=== PATIENT | female | born 1990 | race Caucasian/White ===

== ENCOUNTER 2020-07-18 20:52 | Emergency (ER) | payer MEDICAID ==
[~2020-07-18] VITALS: Ht 157.5 cm; Wt 52.6 kg
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
[2020-07-18] MEDS ORDERED: IBUPROFEN 600 MG TABLET PO ONE (22:00)
--- NOTE | 2020-07-18 22:01 | NUR ---
SOUMYA VAZQUEZ AT BEDSIDE.
[2020-07-18] MEDS ORDERED: IBUPROFEN 600 MG TABLET ONE (22:02)
[2020-07-18] MEDS ORDERED: LIDOCAINE 1%-EPI 1:100,000 20 ML VIAL ONE (22:10)
--- NOTE | 2020-07-18 23:43 | NUR ---
Patient discharged to home in stable condition. Written and verbal after care instructions given. Patient verbalizes understanding of instruction. ambulatory with a steady gait
[2020-07-18 23:56] VITALS: BP 125/82
== END 2020-07-18 22:56 | disposition home or self-care (01) ==
LOC: ER 20:52
DX: S92.344A Nondisplaced fracture of fourth metatarsal bone, right foot, initial encounter for closed fracture (principal); S51.011A Laceration without foreign body of right elbow, initial encounter; X58.XXXA Exposure to other specified factors, initial encounter; Y93.39 Activity, other involving climbing, rappelling and jumping off; Y92.89 Other specified places as the place of occurrence of the external cause; Y99.8 Other external cause status
CPT/HCPCS: 12002; 73080; 73630; 99284; A6403; J3490